=== PATIENT | male | born 1970 | race Caucasian/White ===

== ENCOUNTER 2023-01-17 09:00 | Outpatient (AMB) | payer MEDICARE, BC, SELFPAY ==
[2023-01-17 09:08] VITALS: BP 112/80; PULSE 63; O2SAT 97; BMI 33.3
--- NOTE | 2023-01-17 09:08 | A.OFFPC_ITS ---
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: No Accompanied by: Self / Same As Patient Allergies clopidogrel [From Plavix] Allergy (Verified 01/17/23 09:08) brain bleeding, stroke Iodinated Contrast Media Allergy (Verified 01/17/23 09:08) hives Medication List - Last Reconciled 01/17/23 by Aamir Jackson MD aspirin 1 tab PO DAILY betamethasone dipropionate 0.05% 1 appl topical DAILY PRN 30 days blood pressure monitor As directed ciclopirox 0.77% appl topical clotrimazole-betamethasone 1-0.05 % 1 appl topical BID 2 weeks levetiracetam 1,000 mg PO BID metoprolol succinate ER 37.5 mg (1.5 x 25 mg) PO DAILY miscellaneous medical 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 Mother No problems noted. Social History Housing: House Alcohol intake: never Patient Tobacco Use Status: Never used Tobacco e-Cigarette/Vaping Use: Never Used Second Hand Smoke Exposure: No service: Yes Current occupational status: retired and disabled Cognitive needs: No Hearing needs: No Vision needs: No Questionnaire Thrive Questionnaire Date Thrive assessed: 07/20/22 KEVIN-7 AMB Questionnaire KEVIN-7 Date KEVIN - 7 assessed: 07/20/22 Source: Developed by Drs. Jorge Waldrop, Yahaira Caldera, Anselmo Jauregui and colleagues, with an educational alie from [employer]. Review of Systems Const Denies chills, Denies fatigue, Denies headache(s) and Denies weight loss Eyes Denies change in vision, Denies diplopia and Denies eye pain ENT Denies vertigo, Denies dizziness, Denies headache(s) and Denies nasal discharge Card Denies chest pain, Denies rapid heart rate and Denies dyspnea on exertion Resp Denies chest congestion, Denies cough, Denies pain with cough and Denies dyspnea on exertion GI Denies abdominal pain, Denies hematochezia and Denies change in bowel habits Musc Denies myalgias, Denies arthralgias and Denies joint swelling Skin/Breast Denies lesions and Denies unusual bruising Neuro Denies vertigo, Denies dizziness, Denies headache(s) and Denies focal weakness Endo Denies fatigue Physical exam (Primary Care) Vital Signs: Last Vital Signs Pulse 63 01/17/23 09:08 BP 112/80 01/17/23 09:08 Pulse Ox 97 01/17/23 09:08 Oxygen Delivery Method Room Air 01/17/23 09:08 BMI result Body Mass Index 33.3 Tobacco/Smoking Status: Tobacco use Status Tobacco use date assessed 07/20/22 01/17/23 09:10 Patient Tobacco Use Status Never used Tobacco 01/17/23 09:10 e-Cigarette/Vaping Use Never Used 01/17/23 09:10 Thrive Assessment: Date of Thrive Assessment Date Thrive assessed 07/20/22 01/17/23 09:10 Const General: cooperative, healthy appearing and no acute distress Orientation/consciousness: oriented to person, oriented to place and oriented to time HENMT Head: Yes normal to inspection, Yes normocephalic and Yes atraumatic Mouth: Normal oral and palatal mucosa present and tongue normal Throat: Yes posterior oropharynx normal and Yes uvula midline Eyes General: appearance normal, both eyes and all related structures Neck Neck: Yes normal visual inspection, Yes full ROM and Yes no lymphadenopathy Thyroid: Thyroid normal Carotids: normal carotid upstroke Chest Chest palpation & inspection: normal inspection of the chest Resp Effort & Inspection: normal respiratory effort and able to speak in complete sentences Auscultation: clear to auscultation bilaterally Cardio Jugular venous distension: no JVD Palpation: normal PMI Rate: regular rate Rhythm: regular rhythm Heart sounds: S1 normal heart sound present and S2 normal heart sound present GI Inspection: Yes normal to inspection Palpation (GI): Soft to palpation and No hepatosplenomegaly present Auscultation: normal bowel sounds General: Yes no CVA tenderness Back/Spine/Pelvis Back: no CVA tenderness Skin General skin exam: no rashes or lesions noted Neuro General: oriented to person, oriented to place and oriented to time Extrem General: Yes normal to inspection and Yes full ROM Assessment and Plan Assessment & Plan (1) Physical exam: Code(s): Z00.00 - Encounter for general adult medical examination without abnormal findings Plan: stable (2) Hypertension: Code(s): I10 - Essential (primary) hypertension Plan: stable; same rx (3) Seizure cerebral: Code(s): G40.909 - Epilepsy, unspecified, not intractable, without status epilepticus Plan: as per neuro (4) CVA (cerebral vascular accident): Code(s): I63.9 - Cerebral infarction, unspecified Plan: as per surgeon (5) Venous thromboembolism: Code(s): I82.90 - Acute embolism and thrombosis of unspecified vein Plan: stable Coding Level of Care Code Est Pt Prev Care 40-64y(71651) Diagnoses Physical exam Z00.00 Hypertension I10 Seizure cerebral G40.909 CVA (cerebral vascular accident) I63.9 Venous thromboembolism I82.90
== END 2023-01-17 09:35 | disposition home or self-care (01) ==
PROVIDERS: Visit Provider Internal Medicine
DX: Z00.00 Encounter for general adult medical examination without abnormal findings (principal); I10 Essential (primary) hypertension; G40.909 Epilepsy, unspecified, not intractable, without status epilepticus; I63.9 Cerebral infarction, unspecified; I82.90 Acute embolism and thrombosis of unspecified vein
CPT/HCPCS: 99396

== ENCOUNTER 2023-10-07 22:47 | Emergency (ER) | payer MEDICARE, BC, SELFPAY ==
--- NOTE | 2023-10-07 23:11 | ED.CPR ---
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 No history of head injury or recent fall no vomiting at the site POC was 76. Related Data Allergies Allergy/AdvReac Type Severity Reaction Status Date / Time No Known Allergies Allergy Verified 10/07/23 23:33 Review of Systems Review of Systems: Yes Unobtainable due to mental condition [facility] Past Medical History Medical History (Updated 10/07/23 @ 23:24 by Cem Frances MD) Seizure disorder Brain aneurysm Surgical History (Updated 10/07/23 @ 23:16 by Cem Frances MD) H/O cerebral aneurysm repair Social History Social History Advance Directives: No Advance Directives Information Provided: No Physical Exam Vital Signs: Vital Signs: Last Vital Signs Pulse 0 L 10/07/23 23:31 BMI result Body Mass Index 33.4 Appearance: Good built patient Eyes: Pupils fixed and dilated ENT: Pharynx normal. Oral Mucosa moist atraumatic Neck: Normal inspection. Neck supple. CVS: No spontaneous cardiac activity pulses palpable with CPR Respiratory: Equal air entry bilateral with Ambu Abdomen: Soft Skin: Skin warm and dry. Pallor+ Extremities: No lower extremity edema. Medical Decision Making Medical Decision Making MDM Narrative: Patient continued to be in asystole IV epi was given multiple times IV magnesium IV amiodarone 300 mg and IV calcium chloride with no response bedside echo was done which showed asystole no pericardial fluid. Patient has pronounced at 23:00 of 10/07/2023 property insurance claims examiner called Ilsa Chirinos not a medical operations supervisor case case [id number] Lab Data 10/07/23 22:55 10/07/23 22:55 Labs: Lab Results 10/07/23 Range/Units 22:55 WBC 10.1 (4.8-10.8) X10*3/uL RBC 5.47 (4.60-5.80) X10*6/uL Hgb 15.2 (14.0-18.0) g/dl Hct 46.1 (42.0-52.0) % MCV 84.3 (80.0-98.0) fL MCH 27.8 (27.0-33.0) pg MCHC 33.0 (31.0-36.0) g/dl RDW 13.3 (11.0-16.0) % Plt Count 118 L (160-400) X10*3/uL MPV 12.0 (9.4-12.4) fL Immature Gran % (Auto) Cancelled Neut % (Auto) Cancelled Lymph % (Auto) Cancelled [place] % (Auto) Cancelled Eos % (Auto) Cancelled Baso % (Auto) Cancelled Lymph # (Auto) Cancelled [place] # (Auto) Cancelled Eos # (Auto) Cancelled Baso # (Auto) Cancelled Abs Immat Gran (auto) Cancelled Absolute Neuts (auto) Cancelled Absolute Nucleated RBC 0.080 H (0.0-0.012) X10*3/uL Nucleated RBC % (auto) 0.8 H (0.0-0.2) /100WBC Neutrophils % (Manual) 41 L (45-73) % Band Neutrophils % 6 H (3-5) % Lymphocytes % (Manual) 42 H (20-40) % Monocytes % (Manual) 6 (2-11) % Metamyelocytes % 2 % Myelocytes % 3 % Abs Neuts (Manual) 4.7 (2.0-8.3) X10*3/uL Lymphocytes # (Manual) 4.2 (1.2-4.9) X10*3/uL Monocytes # (Manual) 0.6 (0.1-1.2) X10*3/uL Metamyelocytes # 0.2 X10*3/uL Myelocytes # 0.3 X10*/uL Platelet Estimate DECREASED (NORMAL) Large Platelets PRESENT Plt Morphology Comment NOTED RBC Morphology NOTED Ovalocytes 1+ (5-14) /OIF Raymond Cells 1+ (0-2) /OIF Hold Purple Top SEE NOTE Hold Blue Top SEE NOTE Sodium 143 (135-145) mmol/L Potassium 2.7 L* (3.3-5.1) mmol/L Chloride 102 (96-108) mmol/L Carbon Dioxide 22 (22-29) mmol/L Anion Gap 22 H (12-20) BUN 10 (9-16) mg/dL Creatinine 1.56 H (0.5-1.4) mg/dL Estim Creat Clear Calc 64.6 Estimated GFR 47 Random Glucose 261 H (60-115) mg/dL Calcium 8.6 (8.4-10.2) mg/dL Total Bilirubin 0.8 (0.0-1.0) mg/dL AST 84 H (5-37) U/L ALT 116 H (0-40) U/L Alkaline Phosphatase 79 (39-117) U/L Total Creatine Kinase 173 (38-174) U/L Troponin I High Sens 4.4 (<3.5-35.0) ng/L Total Protein 5.9 L (6.5-8.0) g/dL Albumin 3.5 (3.5-5.0) g/dL Hold Green Top See Note Discharge Plan Discharge Clinical Impression: Cardiac arrest Patient Disposition: Date/Time: 10/07/23 23:00
[2023-10-07 23:29] LABS: Hemoglobin 15.2 g/dl (14.0-18.0); NRBC Pct Auto 0.8 /100WBC (0.0-0.2); PLT CLUMP 1; Red Cell Distribution Width 13.3 % (11.0-16.0)
[2023-10-07 23:31] VITALS: PULSE 0; BMI 33.4
[2023-10-07 23:31] LABS: Hematocrit 46.1 % (42.0-52.0); Mean Corpuscular Hemoglobin 27.8 pg (27.0-33.0); Mean Corpuscular Volume 84.3 fL (80.0-98.0); Red Blood Count 5.47 X10*6/uL (4.60-5.80)
[2023-10-07 23:38] LABS: Platelet Count 118 X10*3/uL (160-400); White Blood Count 10.1 X10*3/uL (4.8-10.8)
[2023-10-07 23:48] LABS: Troponin-I High Sensitivity 4.4 ng/L (<3.5-35.0)
[2023-10-07 23:51] LABS: Band Neutrophils Percent 6 % (3-5); Lymphocytes Absolute Manual 4.2 X10*3/uL (1.2-4.9); Lymphocytes Percent Manual 42 % (20-40); Metamyelocytes Absolute 0.2 X10*3/uL; Metamyelocytes Percent 2 %; Monocytes Absolute Manual 0.6 X10*3/uL (0.1-1.2); Monocytes Percent Manual 6 % (2-11); Myelocytes Absolute 0.3 X10*/uL; Myelocytes Percent 3 %; Neutrophils Absolute Manual 4.7 X10*3/uL (2.0-8.3); Neutrophils Percent Manual 41 % (45-73)
[2023-10-07 23:52] LABS: Burr Cells 1+ (0-2) /OIF; Ovalocytes 1+ (5-14) /OIF; Platelet Estimate DECREASED (NORMAL); RBC Morphology NOTED
--- NOTE | 2023-10-07 23:52 | MHC.EDTECH ---
TIME OF CALLED BY DR SIU @ 2686. 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 (KATRIN WEBSTER)
[2023-10-07 23:53] LABS: Large Platelet PRESENT; Platelet Morphology Comment NOTED
[2023-10-08 00:06] LABS: Alanine Aminotransferase 116 U/L (0-40); Albumin Level 3.5 g/dL (3.5-5.0); Alkaline Phosphatase 79 U/L (39-117); Anion Gap 22 (12-20); Aspartate Amino Transferase 84 U/L (5-37); Bilirubin Total 0.8 mg/dL (0.0-1.0); Blood Urea Nitrogen 10 mg/dL (9-16); Calcium 8.6 mg/dL (8.4-10.2); Carbon Dioxide 22 mmol/L (22-29); Chloride 102 mmol/L (96-108); Creatinine Clr Calc Pharmacy 64.6; Estimated Glomerular Filt Rate 47; Glucose Random 261 mg/dL (60-115); Sodium 143 mmol/L (135-145); Total Protein 5.9 g/dL (6.5-8.0)
[2023-10-08 04:21] LABS: Potassium 2.7 mmol/L (3.3-5.1)
[2023-10-10 11:02] LABS: Glucose, Whole Blood 71 mg/dL (60-115)
== END 2023-10-08 01:00 | disposition expired ==
PROVIDERS: Emergency Provider Internal Medicine; PCP Internal Medicine
DX: I46.9 Cardiac arrest, cause unspecified (principal); G40.909 Epilepsy, unspecified, not intractable, without status epilepticus; I10 Essential (primary) hypertension; Z86.73 Personal history of transient ischemic attack (TIA), and cerebral infarction without residual deficits
CPT/HCPCS: 36415; 80053; 82550; 82947; 84484; 85007; 85027; 96374; 96375; 99283; 99285; J0171; J0282; J3475